=== PATIENT | female | born 1945 | race Caucasian/White ===

== ENCOUNTER → 2017-06-20 | Outpatient (CLI) | payer OTHER | LOC: BMCIMAGING 09:20 | PROVIDERS: ATTEND Internal Medicine Rheumatology | DX: Z13.820 Encounter for screening for osteoporosis (principal); M85.80 Other specified disorders of bone density and structure, unspecified site ==

== ENCOUNTER → 2017-06-28 | Outpatient (CLI) | payer OTHER | LOC: BMCIMAGING 10:05 | PROVIDERS: ATTEND Internal Medicine Rheumatology | DX: M19.041 Primary osteoarthritis, right hand (principal); M19.042 Primary osteoarthritis, left hand ==

== ENCOUNTER → 2017-09-26 | Outpatient (CLI) | payer OTHER | LOC: BMCIMAGING 09:12 | PROVIDERS: ATTEND Internal Medicine Rheumatology | DX: R07.81 Pleurodynia (principal) ==

== ENCOUNTER → 2018-09-12 | Outpatient (CLI) | payer OTHER | LOC: BMCIMAGING 14:02 | PROVIDERS: ATTEND Internal Medicine Rheumatology | DX: M50.321 Other cervical disc degeneration at C4-C5 level (principal) ==